=== PATIENT | female | born 1955 | race Caucasian/White ===

== ENCOUNTER → 2016-12-06 | Outpatient (CLI) | payer BC ==
[~2016-12-06] MED LIST: ASPI81CH2 PO; ATOR-22 PO; DESO0.0516 TOP; EFFSR150 PO; EFFSR75 PO; HYDR-3124 PO; LORA-741 PO; LOSA1TAB38 PO; METO1TAB69 PO; METO50TA7 PO; NTRGSL/4 UT; PRLSR20 PO; TRAZ100T29 PO; TRML160 TOP; ZNTT/150 PO
--- NOTE | 2016-12-06 12:52 | MAMMOGRAPHY REPORT ---
BILATERAL DIGITAL SCREENING MAMMOGRAM WITH CAD: 12/06/2016 CLINICAL HISTORY: Routine screening. Patient has no complaints. TECHNIQUE: Current study was also evaluated with a Computer Aided Detection (CAD) system. Bilatera l CC and MLO views were obtained. COMPARISON: Comparison is made to exams dated: 12/01/2015 mammogram, 11/25/2014 mammogram, 11/19/2013 mammogram, and 11/14/2011 mammogram - [facility]. BREAST COMPOSITION: The tissue of both breasts is heterogeneously dense, which may obscure small ma sses. FINDINGS: No suspicious masses, calcifications, or areas of architectural distortion are noted in e ither breast. There has been no significant interval change compared to prior exams. IMPRESSION: ACR BI-RADS CATEGORY 1: NEGATIVE There is no mammographic evidence of malignancy. A 1 year screening mammogram is recommended. The p atient will receive written notification of the results. Approximately 10% of breast cancers are not detected with mammography. A negative mammographic repor t should not delay biopsy if a clinically suggestive mass is present. Sendy Mooney M.D. ah/:12/06/2016 08:53:35 Denier Control Operator: Linda Bourgeois [facility] letter sent: Normal 1/2 BI-RADS Code: ACR BI-RADS Category 1: Negative
== END | disposition home or self-care (01) ==
LOC: C.MAMM 08:19
PROVIDERS: ATTEND Family Medicine
DX: Z12.31 Encounter for screening mammogram for malignant neoplasm of breast (principal)

== ENCOUNTER → 2017-03-07 | Outpatient (CLI) | payer BC ==
[~2017-03-07] MED LIST changes: +METO100T44 PO; -METO1TAB69 PO
== END | disposition home or self-care (01) ==
LOC: C.PAPS 12:23
PROVIDERS: ATTEND Obstetrics & Gynecology
DX: Z01.419 Encounter for gynecological examination (general) (routine) without abnormal findings (principal)

== ENCOUNTER → 2017-04-08 | Outpatient (CLI) | payer BC ==
[~2017-04-08] MED LIST changes: +REGADENOSON 0.4 MG/5 ML SYR ONE
--- NOTE | 2017-04-11 23:53 | MYOCARDIAL PERFUSION SCAN ---
ORDERING PHYSICIAN: Dr. Aquiles Holland. TIME OF DICTATION: 1930. PROCEDURE: 1. Myocardial perfusion study performed in multiple views/images. 2. Lexiscan stress ECG. INDICATIONS: Chest pain. CONSENT: Informed written consent was obtained. PROCEDURAL DETAILS: For the stress portion of the study, Lexiscan 0.4 mg was intravenously administered over 10-15 seconds, followed by saline flush. This was followed by 31.2 mCi of technetium-99m Cardiolite injected intravenously at 1313 on 04/08/2017. Thirty minutes following the injection, imaging of the heart was performed in multiple projections. For the rest portion of the study, 10.6 mCi of technetium-99m Cardiolite was injected intravenously at 11:37 a.m. on the same day. One hour following the injection, imaging of the heart was performed in the same projections. LEXISCAN ECG: Baseline ECG demonstrated normal sinus rhythm at 65 beats per minute. Normal ECG. Lexiscan ECG demonstrated no significant ST changes. There was no arrhythmia or significant pause noted. No symptoms were reported. Maximum heart rate was 96 beats per minute representing 61% maximum predicted heart rate. Resting blood pressure was 153/80 mmHg. Maximum blood pressure was 156/70 mmHg. FINDINGS: Rotating raw imaging demonstrated normal heart size. There was no significant lung uptake. There was no significant motion artifact. Myocardial perfusion was normal without significant fixed or reversible defect to suggest infarct or significant ischemia. Wall motion appeared hyperdynamic throughout. LV systolic function was hyperdynamic with an EF of 84%. There was no significant transient ischemic dilation. IMPRESSION: 1. Normal myocardial perfusion without suggestion of significant ischemia or infarct. 2. Hyperdynamic left ventricular systolic function with an EF of 84%. 3. Normal wall motion. 4. No symptoms reported. 5. Nondiagnostic Lexiscan ECG.
== END | disposition home or self-care (01) ==
LOC: C.NUCL 11:02
PROVIDERS: ATTEND Family Medicine
DX: R07.9 Chest pain, unspecified (principal)

== ENCOUNTER → 2017-06-06 | Day surgery (SDC) | payer BC ==
[~2017-06-06] VITALS: Ht 165.1 cm; Wt 75.0 kg
[~2017-06-06] MED LIST changes: +ACETAMINOPHEN 325 MG TAB PO PRN; +ATROPINE SULFATE 0.1 MG/ML 5ML SYR IV PRN; +DC ALL ANTICOAGULANTS ONE; +FENTANYL CITRATE INJ 50 MCG/1 ML 2 ML VIAL ONE; +HEPARIN SOD (PORCINE) 1000 UNIT/ML 10 ML VIAL ONE; -METO100T44 PO; +METO1TAB69 PO; +MIDAZOLAM HCL 1 MG/ML 2ML VIAL ONE; +NITROGLYCERIN/D5W 100MCG/ML 20ML SYR ONE; +NiCARDipine HCL INJ 2.5 MG/ML 10 ML AMP ONE; +ONDANSETRON INJ 2 MG/ML 2 ML VIAL IV PRN; -REGADENOSON 0.4 MG/5 ML SYR ONE; +SODIUM CHLORIDE 0.9% 1000ML 1,000 ML IV SCH; +SODIUM CHLORIDE 0.9% 1000ML 250 ML IV PRN
[2017-06-06 07:20] VITALS: Ht 165.1 cm; Wt 75.0 kg
[2017-06-06 07:28] VITALS: BP 147/74; PULSE 68; TEMP 36.4; O2SAT 96
--- NOTE | 2017-06-06 08:21 | History & Physical Bridge Note ---
H&P Re-Evaluation Bridge Note: I have examined the patient, reviewed the History & Physical and in the interval since the performance of the History & Physical I have noted the following changes of clinical significance: No changes noted
--- NOTE | 2017-06-06 09:09 | Cardiac Catheterization ---
Procedure Note Procedure Date Jun 06, 2017. Pre-Procedure Diagnosis Angina AUC Score 6 Post-Procedure Diagnosis Normal Coronary Arteries, Normal Intracardiac Pressures Procedure(s) Performed Coronary Angiography, Left Heart Cath Lathe Set Up Person Dr. Aguilar Special Procedure Tech(s) None Estimated Blood Loss None Medication(s) Heparin, Versed, Lidocaine 1% Summary of Findings Normal Coronaries and LV Pressures Hemodynamics Rest Ao: 128/66 Final Ao: 127/64 LV: 128/13 Recommendations Medical therapy and/or Counseling Specimens None Radiation Exposure (mGy) 1044 Contrast (mls) 80 Fluids (cc crystalloids) 45 Procedural Complication(s) None Disposition Keno Writer / Runner Holding/Recovery ACC Data Cardiac Status Clinical evaluation leading to the procedure Negative nuclear stress but continued on going symptoms CAD Presntation: Sx unlikely to be ischemic Anginal Classification: CCS II Heart Failure: No Cardiogenic Shock w/in 24Hrs: No Cardiac Arrest w/in 24Hrs: No Imaging studies past 6 months: Yes Stress studies past 6 months: Yes Stress Testing w/SPECT MPI: Yes - Negative Coronary Anatomy Dominant: Left Left Main (% Stenosis): Normal LAD (% Stenosis): Normal Circumflex (% Stenosis): Normal RCA (% Stenosis): Normal Diagnostic Physician's Name: Nico Aguilar, DO Status: Elective Closure Device Percutaneous Entry Location: Radial Closure Device: Radial Band Recommendations: Medical therapy and/or Counseling
--- NOTE | 2017-06-06 09:14 | Procedure Note ---
Pre-Mod Sedation Assessment General Date of Moderate Sedation: Jun 06, 2017. 8:36 AM Vital Signs: Vital Signs Past 12 Hours Date Time Temp Pulse Resp B/P (MAP) Pulse Ox O2 Delivery O2 Flow Rate FiO2 06/06/17 08:52 67 17 123/68 (86) 98 Mask 2 06/06/17 07:28 36.4 68 16 147/74 96 Room Air Review Cardiovascular: regular rate, rhythm, no murmur Abdomen: normal bowel sounds, non tender, soft Lungs: chest non-tender Airway Class: I Pre-Sedation Airway Assessment Oral Cavity: WNL Able to Visualize Vocal Cords: No Short Thick Neck: No Hx of Sleep Apnea: No Smoking Status: Former Smoker Mallampati Classification: Class I ASA Classification: Class I Procedure Planning Contraindications-for Mod Sed: None Yes Notes The planned sedation has been discussed with the patient and consent obtained. I have identified the patient, determined the appropriateness of sedation and have assessed the patient immediately prior to the procedure. All medicine(s) and interventions are by my order.
--- NOTE | 2017-06-06 09:15 | Procedure Note ---
Post-Mod Sedation Assessment General Date of Moderate Sedation Jun 06, 2017. 8:52 AM Vital Signs: Vital Signs Past 12 Hours Date Time Temp Pulse Resp B/P (MAP) Pulse Ox O2 Delivery O2 Flow Rate FiO2 06/06/17 08:52 67 17 123/68 (86) 98 Mask 2 06/06/17 07:28 36.4 68 16 147/74 96 Room Air Review - Discharge Criteria Vital Signs Stable: Yes Alert/Oriented/Conversant: Yes Returned to Baseline Mental St: Yes Nausea Absent/Minimal: Yes Pain/Discomfort/Absent/Minimal: Yes Normal/Baseline Respirations: Yes Active Bleeding?: No Pt Received D/C Instructions: Yes Specific Proced. D/C Criteria Distal Pulses Present (Cardiac: Yes Groin site assessed-Card Cath: Yes Voided Prior To Discharge: Yes Discharged Patients Adult Escort/Transportation: Yes
--- NOTE | 2017-06-06 09:17 | Discharge Instructions ---
Discharge Instructions Procedure Procedure Date: Jun 06, 2017. Reason for Visit: Chest Pain,L W/Coronary Arteries,*Dr Aguilar To Do*. Discharge Discharge Date: Jun 06, 2017. Discharge Diagnosis: Normal Coronaries Last Recorded Wt (Kilograms): 75 Anesthesia Post Anesthesia Instructions: If you have had General Anesthesia or IV Sedation: * Do not drive today. * Resume driving when surgeon permits. * Do not make important decisions or sign legal documents today. * Call surgeon for: 1. Temperature elevations greater than 101 degrees F. 2. Uncontrollable pain. 3. Excessive bleeding. 4. Persistent nausea and vomiting. 5. Medication intolerance (nausea, vomiting or rash). * For nausea and vomiting use only clear liquids such as: tea, soda, bouillon until nausea subsides, then gradually increase diet as tolerated. * If you have any concerns or questions, call your surgeon's office. If physician is unavailable and it is an emergency, call 911 or go to the nearest emergency room. Instructions Activity Recommendations: no limitations Recommended Home Diet: resume previous diet Allergies: Coded Allergies: Latex1 -Allergic Contact Dermititis (Verified Adverse Reaction, Unknown, REDNESS, RASH, 11/01/15) Provider Instructions ACTIVITY RECOMMENDATIONS: Excess manipulation of the wrist should be avoided for the next 24-48 hours. * No lifting over 2 pounds (approximately a 1/2 gallon of milk) with the utilized arm for 24 hours. * No strenuous activity such as bowling or tennis for 3 days. * Keep the site of the procedure covered with a bandage for 24 hours. *You may shower the day after the procedure. Do not take a tub bath or submerge the puncture site in water for the next 3 days. *Do not operate any motorized equipment for 3 days. SPECIAL CARE INSTRUCTIONS: The site may be slightly bruised and sore following your procedure. Should any of the following occur, contact the DrJoe who performed your procedure. 1. Redness/inflammation, swelling, chills, or fever, or colored drainage at procedure site within 3-7 days after your procedure. 2. Coldness, discoloration, ongoing numbness, severe pain, or swelling. Expect mild tingling of hand and tenderness at the puncture site for up to three days. If this persists beyond three days, or other symptoms develop, notify the Dr. who performed your procedure. BLEEDING: If the procedure site on your wrist begins to bleed, do not panic 1. Place 1 or 2 fingers firmly just slightly above the insertion site to stop the bleeding. You may be able to feel your pulse as you hold pressure. 2. Lift your finger after 5 minutes to see if the bleeding has stopped. 3. Once the bleeding has stopped, gently wipe the wrist area clean with a bandage. * If the bleeding from your wrist does not stop after 10 minutes, or if there is a large amount of bleeding or spurting, call 911 ([address] drive yourself to the hospital). SKIN IRRITATION: * You may experience some redness and/or swelling in the area where radiation was administered. If any skin irritation occurs, please contact your family physician. FOLLOW UP VISIT: Keep any scheduled doctor appointments. Follow Up Follow-up with: Follow-up with primary care Lluvia Henderson Recommendations: Call your doctor if: * Temperature above 101 degrees * Pain not relieved by pain medicine ordered * There is increased drainage or redness from any incision * You have any unanswered questions or concerns. Your Doctors Instructions noted above were prepared by provider Nico Aguilar. Patient Signature Section: Patient Instructions Signature Page Lesley Cunha Patient (or Guardian) Signature/Date: I have read and understand the instructions given to me by my caregivers. Caregiver/RN/Doctor Signature/Date: The above-named patient and/or guardian has received patient instructions on this date. + Original Patient Signature Page (only) stays with chart. Please make copy for patient.
[2017-06-06 11:30] VITALS: BP 135/62; PULSE 61; O2SAT 95
== END | disposition home or self-care (01) ==
LOC: C.CATH 07:00
PROVIDERS: ATTEND Internal Medicine Interventional Cardiology
DX: I20.9 Angina pectoris, unspecified (principal); F32.9 Major depressive disorder, single episode, unspecified; E78.5 Hyperlipidemia, unspecified; K21.0 Gastro-esophageal reflux disease with esophagitis; I10 Essential (primary) hypertension; Z87.891 Personal history of nicotine dependence; Z90.710 Acquired absence of both cervix and uterus; Z79.82 Long term (current) use of aspirin; Z82.49 Family history of ischemic heart disease and other diseases of the circulatory system

== ENCOUNTER → 2017-12-12 | Outpatient (CLI) | payer OTHER ==
[~2017-12-12] MED LIST changes: -ACETAMINOPHEN 325 MG TAB PO PRN; -ASPI81CH2 PO; -ATROPINE SULFATE 0.1 MG/ML 5ML SYR IV PRN; -DC ALL ANTICOAGULANTS ONE; -FENTANYL CITRATE INJ 50 MCG/1 ML 2 ML VIAL ONE; -HEPARIN SOD (PORCINE) 1000 UNIT/ML 10 ML VIAL ONE; +METO100T44 PO; -METO1TAB69 PO; -METO50TA7 PO; -MIDAZOLAM HCL 1 MG/ML 2ML VIAL ONE; -NITROGLYCERIN/D5W 100MCG/ML 20ML SYR ONE; -NiCARDipine HCL INJ 2.5 MG/ML 10 ML AMP ONE; -ONDANSETRON INJ 2 MG/ML 2 ML VIAL IV PRN; +RANI150T85 PO; -SODIUM CHLORIDE 0.9% 1000ML 1,000 ML IV SCH; -SODIUM CHLORIDE 0.9% 1000ML 250 ML IV PRN; -ZNTT/150 PO
--- NOTE | 2017-12-12 15:26 | MAMMOGRAPHY REPORT ---
BILATERAL DIGITAL SCREENING MAMMOGRAM TOMOSYNTHESIS WITH CAD: 12/12/2017 CLINICAL HISTORY: Routine screening. TECHNIQUE: Breast tomosynthesis in addition to standard 2D mammography was performed. Current study was also evaluated with a Computer Aided Detection (CAD) system. COMPARISON: Comparison is made to exams dated: 12/06/2016 mammogram, 12/01/2015 mammogram, 11/25/2014 ma mmogram, 11/19/2013 mammogram, 11/16/2012 mammogram, and 11/14/2011 mammogram - [facility]ter. BREAST COMPOSITION: The tissue of both breasts is heterogeneously dense, which may obscure small mas ses. FINDINGS: No suspicious masses, calcifications, or areas of architectural distortion are noted in ei ther breast. There has been no significant interval change compared to prior exams. IMPRESSION: ACR BI-RADS CATEGORY 1: NEGATIVE There is no mammographic evidence of malignancy. A 1 year screening mammogram is recommended. The pa tient will receive written notification of the results. Approximately 10% of breast cancers are not detected with mammography. A negative mammographic report should not delay biopsy if a clinically suggestive mass is present. Sendy Mooney M.D. ah/:12/12/2017 12:31:40 Merchandise Buyer: Claudio ROMERO(Ildefonso)(Cynthia), [facility] letter sent: Normal 1/2 BI-RADS Code: ACR BI-RADS Category 1: Negative
== END | disposition home or self-care (01) ==
LOC: C.MAMM 08:09
PROVIDERS: ATTEND Family Medicine
DX: Z12.31 Encounter for screening mammogram for malignant neoplasm of breast (principal)

== ENCOUNTER → 2018-03-13 | Outpatient (CLI) | payer OTHER | END | disposition home or self-care (01) | LOC: C.PAPS 12:02 | PROVIDERS: ATTEND Obstetrics & Gynecology | DX: Z12.72 Encounter for screening for malignant neoplasm of vagina (principal) ==